=== PATIENT | male | born 1965 | race Caucasian/White ===

== ENCOUNTER 2017-07-01 20:05 | Emergency (ER) | payer SELFPAY ==
[~2017-07-01] VITALS: Ht 172.7 cm; Wt 79.4 kg
[~2017-07-01 20:05] MED LIST: Bactrim Ds Tab1 EACH PO; CYCL10 PO; Cephalexin500 MG PO; Cleocin HCl300 MG PO; Crutch1 EACH MISC; DIPH50 PO; DOCU100 PO; Desyrel50 MG PO; HIBICLENS120 ML EXT; HYDACE10B PO; HYDACE5 PO; HYDHCL25 PO; IBUP400 PO; IBUP800 PO; Norco 10-325 T1 EACH PO; Norco 5-325 Ta1 EACH PO; ONDA8 PO; OXYACE5T PO; PANT40 PO; Percocet 5-3251 EACH PO; RXHYDACE PO; Triamcinolone A15 G2 TOP; Vistaril25 MG PO; Zofran Odt4 MG SL; Zofran4 MG PO
[2017-07-01] MEDS ORDERED: CEPH500 PO (21:21)
[2017-07-01] MEDS ORDERED: Bactrim Ds Tab1 EACH PO (21:21)
[2017-07-01] MEDS ORDERED: Norco 5-325 Ta1 EACH PO (21:21)
== END 2017-07-01 21:44 | disposition home or self-care (01) ==
LOC: ER 20:05
DX: L02.31 Cutaneous abscess of buttock (principal); J44.9 Chronic obstructive pulmonary disease, unspecified; F17.210 Nicotine dependence, cigarettes, uncomplicated
CPT/HCPCS: 10061; 99283

== ENCOUNTER 2017-07-20 10:34 | Emergency (ER) | payer SELFPAY ==
[~2017-07-20] VITALS: Ht 172.7 cm; Wt 81.7 kg
[~2017-07-20 10:34] MED LIST changes: +CEPH500 PO
[2017-07-20] MEDS ORDERED: MUPI1NAS (11:00)
[2017-07-20] MEDS ORDERED: CEPH500 PO (11:00)
[2017-07-20] MEDS ORDERED: Bactrim Ds Tab1 EACH PO (11:00)
== END 2017-07-20 11:08 | disposition home or self-care (01) ==
LOC: ER 10:34
DX: L03.317 Cellulitis of buttock (principal); A49.02 Methicillin resistant Staphylococcus aureus infection, unspecified site; Z88.5 Allergy status to narcotic agent; J44.9 Chronic obstructive pulmonary disease, unspecified; F17.210 Nicotine dependence, cigarettes, uncomplicated
CPT/HCPCS: 99282

== ENCOUNTER 2017-09-10 14:23 | Emergency (ER) | payer SELFPAY ==
[~2017-09-10] VITALS: Ht 172.7 cm; Wt 79.4 kg
[~2017-09-10 14:23] MED LIST changes: +MUPI1NAS
[2017-09-10 15:38] LABS: BASOPHILS ABSOLUTE AUTO 0.04 K/mm3 (0.00-0.23); BASOPHILS PERCENT AUTO 1 % (0-2); EOSINOPHILS ABSOLUTE AUTO 0.31 K/mm3 (0.00-0.68); EOSINOPHILS PERCENT AUTO 4 % (0-6); Hemoglobin 15.3 g/dL (13.5-17.5); IMMATURE GRAN ABSOLUTE AUTO 0.02 K/mm3 (0.00-0.10); IMMATURE GRAN PERCENT AUTO 0 % (0-1); LYMPHOCYTES ABSOLUTE AUTO 2.18 K/mm3 (0.84-5.20); LYMPHOCYTES PERCENT AUTO 28 % (21-46); MONOCYTES PERCENT AUTO 12 % (4-13); Mean Corpuscular HGB 31.6 pg (26.0-34.0); Mean Corpuscular Volume 93 fL (80-100); Mean Platelet Volume 8.7 fL (9.1-12.4); NEUTROPHILS ABSOLUTE AUTO 4.28 K/mm3 (1.96-9.15); NEUTROPHILS PERCENT AUTO 55 % (41-73); Platelet Count 194 K/mm3 (150-400); RDW Standard Deviation 44.9 fL (35.1-46.3); Red Blood Cell Count 4.84 M/mm3 (4.30-5.90); White Blood Cell Count 7.73 K/mm3 (4.00-11.30)
[2017-09-10 15:51] LABS: Alanine Aminotransfer (ALT/SGP 30 U/L (12-78); Albumin, Blood 3.5 g/dL (3.4-5.0); Alk Phos 60 U/L (50-136); Anion Gap 6 mmol/L (6-16); Aspartate Aminotrans (AST/SGOT 22 U/L (12-37); Bilirubin, Total 0.2 mg/dL (0.1-1.0); Blood Urea Nitrogen 17 mg/dL (8-24); Bun/Creatinine Ratio 23.2 (12.0-20.0); CO2, Blood 24 mmol/L (21-32); Calcium, Blood 8.4 mg/dL (8.5-10.1); Chloride, Blood 112 mmol/L (98-108); Creatinine, Blood 0.73 mg/dL (0.60-1.20); Globulin, Blood 3.5 g/dL (2.2-4.0); Glomerular Filtration Rate >60 (60-); Glucose, Blood 82 mg/dL (70-99); Sodium, Blood 142 mmol/L (136-145); Troponin I <0.015 ng/mL (0.000-0.040)
== END 2017-09-10 17:18 | disposition home or self-care (01) ==
LOC: ER 14:23
PROVIDERS: Emergency Medicine
DX: R07.9 Chest pain, unspecified (principal); J44.9 Chronic obstructive pulmonary disease, unspecified; F41.9 Anxiety disorder, unspecified; Z88.5 Allergy status to narcotic agent; F17.200 Nicotine dependence, unspecified, uncomplicated
CPT/HCPCS: 36415; 71046; 80053; 84484; 85025; 93005; 93010; 99283

== ENCOUNTER → 2019-05-17 | Outpatient (CLI) | payer SELFPAY | END | disposition home or self-care (01) | LOC: LAB SHORT 08:50 → LAB 08:50 | DX: M70.41 Prepatellar bursitis, right knee (principal) | CPT/HCPCS: 87070; 87075; 87077; 87147; 87186; 87205 ==